=== PATIENT | female | born 1955 | race Caucasian/White ===

== ENCOUNTER → 2017-01-10 | Outpatient (CLI) | payer BC ==
[~2017-01-10] MED LIST: REGADENOSON 0.4 MG/5 ML SYRINGE IV ONE
--- NOTE | 2017-01-10 10:23 | EST ---
DATE OF SERVICE: 01/10/2017 AGE: 61Y SEX: F HT: 64" WT: 145 lbs. Protocol Solomon: Other: Lexiscan Cardiolite Stage: Dur. of Exercise: *Heart Rate Blood Pressure *Rest: 62 Rest: 130/73 * *Max. Achieved: 98 Maximum BP: 130/73 85% PMHR: 136 100% PMHR: 160 *METS: INDICATION OF STUDY: Chest pain. MEDICATIONS: Pretesting physical examination showed a heart rate of 62, pressure is 130/73 mmHg. Baseline EKG showed sinus rhythm. 0.4 mg of Lexiscan was given to the patient over 15 seconds per protocol. Max heart rate was 98 beats per minute. Clinically, the patient did not have any symptoms and the EKG did not show any significant ST or T wave abnormalities consistent with ischemia. CONCLUSION: 1. Nondiagnostic electrocardiogram stress testing response to Lexiscan. 2. Please follow up on the Cardiolite portion on a separate report from the radiology department.
--- NOTE | 2017-01-10 10:31 | NM ---
EXAMINATION TYPE: NM stress lexiscan cardiolite DATE OF EXAM: 01/10/2017 COMPARISON: NONE HISTORY: Chest pain TECHNIQUE: After the intravenous administration of 11.0 mCi Tc 99m Sestamibi - Cardiolite resting SP ECT images acquired 45 minutes post injection. The patient received 0.4mg Lexiscan, 27.1 mCi Tc 99m Sestamibi - Stress images obtained [address] injection FINDINGS: Review of stress and rest SPECT images demonstrates no distinct perfusion abnormality. Wall motion is unremarkable with an ejection fraction of 59%. IMPRESSION: I DO NOT SEE CONVINCING EVIDENCE OF INDUCIBLE ISCHEMIC CHANGE AT THIS TIME.
== END | disposition home or self-care (01) ==
LOC: RADNMMAIN 07:53
PROVIDERS: ATTEND Family Medicine
DX: R07.9 Chest pain, unspecified (principal)
CPT/HCPCS: 93017; 78452; A9500; J2785